=== PATIENT | male | born 1985 | race African-American/Black ===

== ENCOUNTER 2019-10-30 23:40 | Emergency (ER) | payer OTHER ==
[~2019-10-30] VITALS: Ht 172.7 cm; Wt 70.3 kg
[2019-10-30 23:48] VITALS: BP 145/82
[2019-10-31] MEDS ORDERED: KETOROLAC 30 MG/ML VIAL IM ONE
[2019-10-31] MEDS ORDERED: AMOXIL/CLAVULANATE 875/125 MG 1 TAB PO ONE
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
--- NOTE | 2019-10-31 00:15 | NUR ---
PT SIGNED CONSENT FORM FOR TDAP VACCINE. ADMIN ADACEL IM ON LEFT DELTOID.
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
--- NOTE | 2019-10-31 00:20 | NUR ---
GAVE REPORT TO SAWYER, CHARGE NURSE. TRANSFER OF CARE AT THIS TIME.
[2019-10-31 00:34] VITALS: BP 145/82
== END 2019-10-31 00:34 | disposition home or self-care (01) ==
LOC: MED 23:40
DX: S09.93XA Unspecified injury of face, initial encounter (principal); J34.89 Other specified disorders of nose and nasal sinuses; K13.79 Other lesions of oral mucosa; Y04.1XXA Assault by human bite, initial encounter; Y93.89 Activity, other specified; Y92.89 Other specified places as the place of occurrence of the external cause; Y99.8 Other external cause status
CPT/HCPCS: 90471; 90715; 96372; 99284; J1885